=== PATIENT | male | born 1970 | race American Indian/Alaskan Native ===

== ENCOUNTER 2022-06-10 06:51 | Emergency (ER) | payer MEDICARE ==
--- NOTE | 2022-06-10 08:20 | XRay Report ---
CHEST 2 VIEWS INDICATION / CLINICAL INFORMATION: Upper Respiratory Infection. Cough, body aches for 5 days. COMPARISON: 12/11/2012 FINDINGS: SUPPORT DEVICES: None. HEART / MEDIASTINUM: No significant abnormality. LUNGS / PLEURA: No significant pulmonary or pleural abnormality. No pneumothorax. ADDITIONAL FINDINGS: No significant additional findings. IMPRESSION: 1. No acute findings. Signer Name: Zak Mitchell Jr, MD Signed: 06/10/2022 8:16 AM Workstation Name: [id number]
--- NOTE | 2022-06-10 11:51 | Emergency Department Report ---
- General Chief Complaint: Upper Respiratory Infection Stated Complaint: COVID SX Source: patient Mode of arrival: Ambulatory Limitations: No Limitations - History of Present Illness Initial Comments: 52-year-old male presents to the ED complaining of cough x5 days with nasal congestion. He has a history of hypertension. He recently went to a rehab program and was concerned that he may have came in contact with COVID. He denies any fever ,chills nausea or vomiting. Patient is alert and oriented x3. No acute distress noted .No ill appearance noted 3 MD Complaint: cough, nasal congestion Onset/Timin -: days(s) Improves With: nothing Worsens With: nothing Context: sick contacts Associated Symptoms: denies other symptoms - Related Data Previous Rx's Medication Instructions Recorded Last Taken Type Amoxicillin [Amoxicillin TAB] 875 mg PO BID 10 Days #20 tab 06/10/22 Unknown Rx methylPREDNISolone [Medrol 4MG 4 mg PO DAILY 21 Days #21 tab 06/10/22 Unknown Rx DOSEPAK (21 tabs)] Allergies Allergy/AdvReac Type Severity Reaction Status Date / Time No Known Allergies Allergy Verified 06/10/22 07:24 ED Review of Systems ROS: Stated complaint: COVID SX Other details as noted in HPI Constitutional: denies: chills, fever Eyes: denies: eye pain, eye discharge, vision change ENT: denies: ear pain, throat pain Respiratory: cough. denies: shortness of breath, wheezing Cardiovascular: denies: chest pain, palpitations Endocrine: no symptoms reported Gastrointestinal: denies: abdominal pain, nausea, diarrhea Genitourinary: denies: urgency, dysuria Musculoskeletal: denies: back pain, joint swelling, arthralgia Skin: denies: rash, lesions Neurological: denies: headache, weakness, paresthesias Psychiatric: denies: anxiety, depression Hematological/Lymphatic: denies: easy bleeding, easy bruising ED Past Medical Hx - Medications Home Medications: Home Medications Medication Instructions Recorded Confirmed Last Taken Type Amoxicillin [Amoxicillin TAB] 875 mg PO BID 10 Days #20 tab 06/10/22 Unknown Rx methylPREDNISolone [Medrol 4MG 4 mg PO DAILY 21 Days #21 tab 06/10/22 Unknown Rx DOSEPAK (21 tabs)] ED Physical Exam - General Limitations: No Limitations General appearance: alert, in no apparent distress - Head Head exam: Present: atraumatic, normocephalic - Eye Eye exam: Present: normal appearance - ENT ENT exam: Present: mucous membranes moist - Neck Neck exam: Present: normal inspection - Respiratory Respiratory exam: Present: normal lung sounds bilaterally. Absent: respiratory distress - Cardiovascular Cardiovascular Exam: Present: regular rate, normal rhythm. Absent: systolic murmur, diastolic murmur, rubs, gallop - GI/Abdominal GI/Abdominal exam: Present: soft, normal bowel sounds - Rectal Rectal exam: Present: deferred - Extremities Exam Extremities exam: Present: normal inspection - Back Exam Back exam: Present: normal inspection - Neurological Exam Neurological exam: Present: alert, oriented X3 - Psychiatric Psychiatric exam: Present: normal affect, normal mood - Skin Skin exam: Present: warm, dry, intact, normal color. Absent: rash ED Course Vital Signs 06/10/22 06/10/22 06/10/22 07:19 07:20 12:02 Temperature 98.4 F 98.4 F 97.5 F L Pulse Rate 63 55 L Respiratory 14 16 16 Rate Blood Pressure 136/88 Blood Pressure 148/86 [Left] O2 Sat by Pulse 98 100 Oximetry ED Medical Decision Making - Radiology Data [facility] [address] [place] [address] XRay Report Signed Patient: MIUGEL SOL MR# : [id number] : 1970 Acct:[id number] Age/Sex: 52 / M ADM Date: 06/10/22 Loc: ED Attending Dr: Ordering Physician: ALYSON ANDREW MD Date of Service: 06/10/22 Procedure(s): XR chest routine 2V Accession Number(s): [id number] cc: ED MD KAMRAN Fluoro Time In Minutes: CHEST 2 VIEWS INDICATION / CLINICAL INFORMATION: Upper Respiratory Infection. Cough, body aches for 5 days. COMPARISON: 12/11/2012 FINDINGS: SUPPORT DEVICES: None. HEART / MEDIASTINUM: No significant abnormality. LUNGS / PLEURA: No significant pulmonary or pleural abnormality. No pneumothorax. ADDITIONAL FINDINGS: No significant additional findings. IMPRESSION: 1. No acute findings. Signer Name: Zak Mitchell Jr, MD Signed: 06/10/2022 8:16 AM Workstation Name: [id number] Transcribed By: TTR Dictated By: ZAK MITCHELL JR, MD Electronically Authenticated By: ZAK MITCHELL JR, MD Signed Date/Time: 06/10/22 0816 - Medical Decision Making 52-year-old male presents to the ED complaining of cough x5 days with nasal congestion. He has a history of hypertension. He recently went to a rehab program and was concerned that he may have came in contact with COVID. He denies any fever ,chills nausea or vomiting. Patient is alert and oriented x3. No acute distress noted .No ill appearance noted. Physical examination is unremarkable. Rechecked the patient is resting quietly , comfortable and feeling better. I discussed the results of diagnostic study, my clinical impression and the plan for further treatment with the patient. Patient agrees with plan and discharge at this present time. All question addressed. I have given the patient instruction regarding a diagnosis ,expectation ,follow-up and return precaution. I explained to the patient that emergent condition may arise and to return to the ED for new worsen and any new persisting condition. I have explained the importance of following up with the primary care physician or referral physician listed below has instructed. The patient verbalized understanding of discharge instruction. Critical care attestation.: If time is entered above; I have spent that time in minutes in the direct care of this critically ill patient, excluding procedure time. ED Disposition Clinical Impression: URI (upper respiratory infection) Qualifiers: URI type: unspecified URI Qualified Code(s): J06.9 - Acute upper respiratory i nfection, unspecified Disposition: 01 HOME / SELF CARE / HOMELESS Is pt being admited?: No Does the pt Need Aspirin: No Condition: Stable Instructions: Upper Respiratory Infection, Adult, [id number] Additional Instructions: Take medication as prescribed Return to the ED Prescriptions: Amoxicillin [Amoxicillin TAB] 875 mg PO BID 10 Days #20 tab methylPREDNISolone [Medrol 4MG DOSEPAK (21 tabs)] 4 mg PO DAILY 21 Days #21 tab Referrals: MARGARITA CAMARA MD [Primary Care Provider] - 3-5 Days Forms: Work/School Release Form(ED) Time of Disposition: 12:11
[2022-06-10 12:03] VITALS: BP 148/86
== END 2022-06-10 12:18 | disposition home or self-care (01) ==
LOC: ED 06:51
DX: J06.9 Acute upper respiratory infection, unspecified (principal); Z79.899 Other long term (current) drug therapy
CPT/HCPCS: 71046; 99283